=== PATIENT | male | born 1995 | race Caucasian/White ===

== ENCOUNTER 2017-12-24 06:42 | Emergency (ER) | payer OTHER ==
[~2017-12-24] VITALS: Ht 170.2 cm; Wt 86.2 kg
[~2017-12-24 06:42] MED LIST: Flomax0.4 MG PO; LEVO750 PO; Percocet 5-3251 EACH PO
[2017-12-24] MEDS ORDERED: Permethrin60 GM TOP (07:20)
== END 2017-12-24 07:30 | disposition home or self-care (01) ==
LOC: ER 06:42
DX: B86 Scabies (principal)
CPT/HCPCS: 99282